=== PATIENT | male | born 1970 | race Caucasian/White ===

== ENCOUNTER 2017-04-16 16:44 | Emergency (ER) | payer OTHER ==
[~2017-04-16] VITALS: Ht 175.3 cm; Wt 82.0 kg
[2017-04-16 16:50] VITALS: TEMP 36.7; Ht 175.3 cm; Wt 82.0 kg
[2017-04-16] MEDS ORDERED: IBUPROFEN 600 MG TAB PO STA (17:09)
[2017-04-16] MEDS ORDERED: ROSU5TAB PO (17:24)
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
[2017-04-16] MEDS ORDERED: TRAMADOL HCL 50 MG HOME PACK PO ONE (18:30)
[2017-04-16 18:54] VITALS: BP 125/78; PULSE 78; O2SAT 98
== END 2017-04-16 18:55 | disposition home or self-care (01) ==
LOC: C.EDB 16:46
DX: S80.01XA Contusion of right knee, initial encounter (principal); V18.0XXA Pedal cycle driver injured in noncollision transport accident in nontraffic accident, initial encounter; Y92.821 Forest as the place of occurrence of the external cause; Y93.55 Activity, bike riding; S81.031A Puncture wound without foreign body, right knee, initial encounter; E78.5 Hyperlipidemia, unspecified; Z82.49 Family history of ischemic heart disease and other diseases of the circulatory system; Z84.1 Family history of disorders of kidney and ureter